=== PATIENT | male | born 1960 | race Caucasian/White ===

== ENCOUNTER 2024-10-09 13:25 | Emergency (ER) | payer SELFPAY | END 2024-10-09 14:06 | disposition short-term general hospital (02) | LOC: ER 14:05 | DX: M54.9 Dorsalgia, unspecified (principal) ==

== ENCOUNTER 2024-10-11 00:22 | Emergency (ER) | payer MEDICARE ==
[~2024-10-11] VITALS: Ht 188 cm; Wt 88.5 kg
[2024-10-11 01:43] LABS: BASOPHILS % 0.8 % (0.0-1.0); EOSINOPHILS % 0.5 % (0.0-6.0); LYMPHOCYTES % 15.1 % (18.0-39.1); MONOCYTES % 9.9 % (4.4-11.3); NEUTROPHILS % 73.0 % (38.7-80.0); RED CELL DISTRIBUTION WIDTH 17.8 % (11.7-14.4)
[2024-10-11 02:21] LABS: EST GLOMERULAR FILTRATION RATE 100.0 ML/MIN (>=60)
[2024-10-11] MEDS: FUROSEMIDE INJ 10 MG/ML 4 ML VIAL IV ONE (06:03)
[2024-10-11] MEDS ORDERED: IOPAMIDOL 370 MG/ML 100 ML INFUS..BTL INJ ONE (07:08)
[2024-10-11] MEDS ORDERED: TRELEGY ELLIPT1 EACH IH (08:24)
[2024-10-11] MEDS ORDERED: ATORVASTATIN CA40 MG PO (08:24)
[2024-10-11] MEDS ORDERED: LISINOPRIL40 MG PO (08:24)
[2024-10-11] MEDS ORDERED: CLOPIDOGREL75 MG PO (08:24)
[2024-10-11] MEDS ORDERED: TRESIBA FL100 UNIT/1 SQ (08:24)
[2024-10-11] MEDS ORDERED: METFORMIN HCL500 M1 PO (08:24)
[2024-10-11] MEDS ORDERED: AMLODIPINE BESY10 MG PO (08:24)
[2024-10-11] MEDS ORDERED: GLIMEPIRIDE1 MG PO (08:24)
[2024-10-11] MEDS ORDERED: CARVEDILOL25 MG PO (08:24)
[2024-10-11] MEDS ORDERED: PANTOPRAZOLE SO40 MG PO (08:24)
[2024-10-11] MEDS ORDERED: HYDROCHLOROTH12.5 MG PO (08:24)
[2024-10-11] MEDS ORDERED: GLIPIZIDE ER10 MG PO (08:24)
[2024-10-11 11:25] VITALS: TEMP 98.2
[2024-10-11 13:03] VITALS: PULSE 100; RESP 18; O2SAT 97
== END 2024-10-11 13:15 | disposition other institution (70) ==
LOC: ER 01:06
DX: M79.605 Pain in left leg (principal); M79.604 Pain in right leg; I70.203 Unspecified atherosclerosis of native arteries of extremities, bilateral legs; I74.5 Embolism and thrombosis of iliac artery; I50.9 Heart failure, unspecified; J90 Pleural effusion, not elsewhere classified; I51.7 Cardiomegaly; N40.0 Benign prostatic hyperplasia without lower urinary tract symptoms; R91.1 Solitary pulmonary nodule; R94.31 Abnormal electrocardiogram [ECG] [EKG]
CPT/HCPCS: 36415; 71045; 72131; 75635; 80053; 83880; 85025; 93005; 93925; 99284; J1938; Q9967